=== PATIENT | male | born 1940 | race Caucasian/White ===

== ENCOUNTER 2021-05-21 22:23 | Emergency (ER) | payer MEDICARE ==
[~2021-05-21] VITALS: Ht 175.3 cm; Wt 79.4 kg
[2021-05-21 22:57] VITALS: BP 132/84
== END 2021-05-21 22:57 | disposition home or self-care (01) ==
LOC: FSED 22:34
DX: R33.9 Retention of urine, unspecified (principal); I48.91 Unspecified atrial fibrillation; Z85.828 Personal history of other malignant neoplasm of skin
CPT/HCPCS: 51700; 99282